=== PATIENT | female | born 1985 ===

== ENCOUNTER 2017-08-13 16:17 | Emergency (ER) | payer MEDICAID ==
[2017-08-13 16:24] VITALS: O2SAT 98
[2017-08-13] MEDS ORDERED: Sodium Chloride 0.9% 1,000 ML IV ONE (17:07)
[2017-08-13] MEDS ORDERED: Sodium Chloride 0.9% 1,000 ML ONE (17:27)
[2017-08-13 18:23] VITALS: BP 121/74; PULSE 18; RESP 19; TEMP 98
--- NOTE | 2017-08-13 20:20 | C.PDOC ---
History Of Present Illness 31yo female, presents to ED with complaints of subjective fever and sore throat for the past couple days. She also reports an episode of vomiting but states she has been able to tolerate PO fluid intake. She denies any dysuria, hematuria , abdominal pain, and denies any known sick contacts. Patient offers no other medical complaints. Time Seen by Provider: 08/13/17 17:00 Chief Complaint (Nursing): GI Problem History Per: Patient History/Exam Limitations: no limitations Onset/Duration Of Symptoms: Days Current Symptoms Are (Timing): Still Present Additional History Per: Patient Past Medical History Reviewed: Historical Data, Nursing Documentation, Vital Signs Vital Signs: Last Vital Signs Temp 98 F 08/13/17 18:22 Pulse 18 L 08/13/17 18:22 Resp 19 08/13/17 18:22 BP 121/74 08/13/17 18:22 Pulse Ox 98 08/13/17 20:29 - Medical History PMH: HIV Family History: States: No Known Family Hx - Social History Hx Tobacco Use: No Hx Alcohol Use: No Hx Substance Use: No - Immunization History Hx Tetanus Toxoid Vaccination: No Hx Influenza Vaccination: No Hx Pneumococcal Vaccination: No Review Of Systems Except As Marked, All Systems Reviewed And Found Negative. Constitutional: Positive for: Fever (subjhective) ENT: Positive for: Throat Pain Respiratory: Negative for: Cough, Shortness of Breath Gastrointestinal: Positive for: Vomiting Physical Exam - Physical Exam Appears: Non-toxic, No Acute Distress Skin: Normal Color, Warm, Dry Head: Normacephalic Eye(s): bilateral: Normal Inspection Oral Mucosa: Moist Throat: Exudate (left) Lymphatic: Adenopathy (anterior cervical lymphadenopathy) Chest: Symmetrical Cardiovascular: Rhythm Regular Respiratory: Normal Breath Sounds Gastrointestinal/Abdominal: Normal Exam, Soft, No Tenderness Neurological/Psych: Oriented x3 ED Course And Treatment O2 Sat by Pulse Oximetry: 98 (RA) Pulse Ox Interpretation: Normal Medical Decision Making Medical Decision Making: Plan: -- IV FLuids -- Toradol 30mg -- Zofran 4mg -- Tylenol 975 mg PO Progress: Patient reports marked improvement in symptoms and is stable for discharge home. Instructed to follow up with PMD in 2-3 days. Disposition - Disposition Referrals: Hernan Herrera, [Non-Staff] - Disposition: HOME/ ROUTINE Disposition Time: 18:00 Condition: IMPROVED Additional Instructions: Thank you for letting us take care of you today. The emergency medical care you received today was directed at your acute symptoms. If you were prescribed any medication, please fill it and take as directed. It may take several days for your symptoms to resolve. Return to the Emergency Department if your symptoms worsen, do not improve, or if you have any other problems. Please contact your doctor or call one of the physicians/clinics you have been referred to that are listed on the Patient Visit Information form that is included in your discharge packet. Bring any paperwork you were given at discharge with you along with any medications you are taking to your follow up visit. Our treatment cannot replace ongoing medical care by a primary care provider (PCP) outside of the emergency department. Thank you for allowing the [facility] team to be part of your care today. Follow up with your doctor in 1-2 days for re-evaluation and further management. Prescriptions: Amoxicillin [Amoxil 500 mg Cap] 500 mg PO Q8 #21 cap Ibuprofen [Motrin] 600 mg PO Q6 PRN #20 tab PRN Reason: Pain, Moderate (4-7) Instructions: Sore Throat, Adult (DC) Forms: [email or web address] (Kyrgyz), Work Excuse - Clinical Impression Clinical Impression: Acute bacterial tonsillitis - Scribe Statement The provider has reviewed the documentation as recorded by the Fabricioibe (Radhika Teresa) Provider Attestation: All medical record entries made by the Fabricioibe were at my direction and personally dictated by me. I have reviewed the chart and agree that the record accurately reflects my personal performance of the history, physical exam, medical decision making, and the department course for this patient. I have also personally directed, reviewed, and agree with the discharge instructions and disposition.
== END 2017-08-13 18:23 | disposition home or self-care (01) ==
LOC: C.ER 16:17
DX: J03.90 Acute tonsillitis, unspecified (principal)
CPT/HCPCS: 96374; 99284; J1885; J7030

== ENCOUNTER 2018-06-20 16:34 | Emergency (ER) | payer MEDICAID ==
[2018-06-20 16:40] VITALS: O2SAT 98
[2018-06-20] MEDS ORDERED: Sodium Chloride 0.9% 1,000 ML IV STA (17:30)
[2018-06-20] MEDS ORDERED: Sodium Chloride 0.9% 1,000 ML ONE (18:22)
[2018-06-20 18:25] LABS: BASO % 0.2 % (0.0-2.0); EOS % 0.4 % (0.0-4.0); HEMOGLOBIN 11.4 g/dL (11.0-16.0); LYMPH # 0.9 K/uL (1.0-4.3); LYMPH % 8.1 % (20.0-40.0); MEAN CORPUSCULAR HGB CONC 32.2 g/dL (33.0-37.0); MONO # 1.1 K/uL (0.0-0.8); MONO % 9.5 % (0.0-10.0); NEUT % 81.8 % (50.0-75.0); PLATELET COUNT 283 K/uL (130-400); RBC 4.38 Mil/uL (3.80-5.20); RED CELL DISTRIBUTION WIDTH 13.3 % (11.5-14.5)
[2018-06-20 18:29] LABS: MEAN CELL VOLUME 80.6 fL (81.0-99.0)
[2018-06-20 18:39] LABS: ALB/GLOB RATIO 1.1 (1.0-2.1); ALBUMIN 3.8 g/dL (3.5-5.0); ALT/SGPT 20 U/L (9-52); AST/SGOT 26 U/L (14-36); BLOOD UREA NITROGEN 4 mg/dL (7-17); CALCIUM 8.8 mg/dl (8.6-10.4); GFR NON-AFRICAN AMERICAN > 60
[2018-06-20 18:44] LABS: SQUAMOUS EPITHIAL 1 /hpf (0-5); URINE BACTERIA FEW (<OCC); URINE BILIRUBIN NEGATIVE (NEGATIVE); URINE BLOOD 2+ (NEGATIVE); URINE CLARITY Hazy (Clear); URINE COLOR Yellow (YELLOW); URINE GLUCOSE (UA) NORMAL (Normal); URINE LEUKOCYTE ESTERASE 1+ Leu/uL (Negative); URINE PROTEIN NEGATIVE (NEGATIVE); URINE UROBILINOGEN NORMAL mg/dL (0.2-1.0)
[2018-06-20 18:58] LABS: BANDS 4 % (0-2); EOSINOPHIL 1 % (0-4); LYMPHOCYTE 4 % (20-40); MONOCYTE 7 % (0-10); NEUTROPHIL 84 % (50-75); PLATELET ESTIMATE NORMAL (NORMAL); TOTAL CELLS COUNTED 100
--- NOTE | 2018-06-20 18:58 | C.PDOC ---
History Of Present Illness Patient is a 32 year old female, 14 weeks , who presents to the ED c/o body aches, chills, diarrhea, and lower abdominal discomfort for the past 2 to 3 days. Patient denies any fever, nausea, vomiting, CP, SOB, or vaginal bleeding. <Noni Forde - Last Filed: 06/20/18 19:08> History Per: Patient History/Exam Limitations: no limitations Onset/Duration Of Symptoms: Days (3) Current Symptoms Are (Timing): Still Present Associated Symptoms: Chills, Diarrhea. denies: Fever, Nausea, Vomiting, Chest Pain, Constipation Recent travel outside of the [place]: No Additional History Per: Patient <Noni Forde - Last Filed: 06/20/18 19:08> <Ga Seo - Last Filed: 06/20/18 20:31> Time Seen by Provider: 06/20/18 16:45 Chief Complaint (Nursing): Abdominal Pain Past Medical History Reviewed: Historical Data, Nursing Documentation, Vital Signs Vital Signs: Last Vital Signs Temp 98.9 F 06/20/18 16:36 Pulse 109 H 06/20/18 16:36 Resp 18 06/20/18 16:36 BP 126/73 06/20/18 16:36 Pulse Ox 98 06/20/18 16:36 - Medical History PMH: HIV Surgical History: No Surg Hx Family History: States: No Known Family Hx - Social History Hx Tobacco Use: No Hx Alcohol Use: No Hx Substance Use: No - Immunization History Hx Tetanus Toxoid Vaccination: No Hx Influenza Vaccination: No Hx Pneumococcal Vaccination: No <Noni Forde - Last Filed: 06/20/18 19:08> Vital Signs: Last Vital Signs Temp 98.2 F 06/20/18 20:04 Pulse 101 H 06/20/18 20:04 Resp 20 06/20/18 20:04 BP 102/65 06/20/18 20:04 Pulse Ox 98 06/20/18 20:04 <Ga Seo - Last Filed: 06/20/18 20:31> Review Of Systems Except As Marked, All Systems Reviewed And Found Negative. Constitutional: Positive for: Chills, Other (body aches). Negative for: Fever Cardiovascular: Negative for: Chest Pain Respiratory: Negative for: Shortness of Breath Gastrointestinal: Positive for: Abdominal Pain (lower abdominal discomfort ), Diarrhea. Negative for: Nausea, Vomiting Genitourinary: Negative for: Vaginal Bleeding <Noni Forde - Last Filed: 06/20/18 19:08> Physical Exam - Physical Exam Appears: Non-toxic, No Acute Distress Skin: Normal Color, Warm, Dry Head: Atraumatic, Normacephalic Eye(s): bilateral: Normal Inspection Oral Mucosa: Moist Neck: Normal ROM, Supple Chest: Symmetrical, No Deformity Cardiovascular: Rhythm Regular, No Murmur Respiratory: Normal Breath Sounds, No Rales, No Rhonchi, No Wheezing Gastrointestinal/Abdominal: Soft, Tenderness (mild tenderness in lower abdomen) Neurological/Psych: Oriented x3, Normal Speech, Normal Cognition <Noni Forde - Last Filed: 06/20/18 19:08> ED Course And Treatment - Laboratory Results Result Diagrams: 06/20/18 18:20 06/20/18 18:20 Lab Results: Total Bilirubin 0.3 mg/dL (0.2-1.3) 06/20/18 18:20 AST 26 U/L (14-36) 06/20/18 18:20 ALT 20 U/L (9-52) 06/20/18 18:20 Alkaline Phosphatase 56 U/L (38-126) 06/20/18 18:20 Total Protein 7.1 g/dL (6.3-8.3) 06/20/18 18:20 Albumin 3.8 g/dL (3.5-5.0) 06/20/18 18:20 Globulin 3.4 gm/dL (2.2-3.9) 06/20/18 18:20 Albumin/Globulin Ratio 1.1 (1.0-2.1) 06/20/18 18:20 Urine Color Yellow (YELLOW) 06/20/18 18:27 Urine Clarity Hazy (Clear) 06/20/18 18: Urine pH 5.0 (5.0-8.0) 06/20/18 18:27 Ur Specific Daggett 1.017 (1.003-1.030) 06/20/18 18:27 Urine Protein Negative mg/dL (NEGATIVE) 06/20/18 18: Urine Glucose (UA) Normal mg/dL (Normal) 06/20/18 18:27 Urine Ketones 2+ mg/dL (NEGATIVE) H 06/20/18 18:27 Urine Blood 2+ (NEGATIVE) H 06/20/18 18:27 Urine Nitrate Negative (NEGATIVE) 06/20/18 18:27 Urine Bilirubin Negative (NEGATIVE) 06/20/18 18:27 Urine Urobilinogen Normal mg/dL (0.2-1.0) 06/20/18 18:27 Ur Leukocyte Esterase 1+ Karina/uL (Negative) H 06/20/18 18:27 Urine WBC (Auto) 46 /hpf (0-5) H 06/20/18 18:27 Urine RBC (Auto) 16 /hpf (0-3) H 06/20/18 18:27 Ur Squamous Epith Cells 1 /hpf (0-5) 06/20/18 18:27 Urine Bacteria Few (<OCC) H 06/20/18 18:27 O2 Sat by Pulse Oximetry: 98 (on RA) Pulse Ox Interpretation: Normal Progress Note: Plan: Bloodwork. IV Fluids. Urine Culture. Urinalysis. Serology Influenza. US Pelvis <Noni Forde - Last Filed: 06/20/18 19:08> - Laboratory Results Result Diagrams: 06/20/18 18:20 06/20/18 18:20 Lab Results: Total Bilirubin 0.3 mg/dL (0.2-1.3) 06/20/18 18:20 AST 26 U/L (14-36) 06/20/18 18:20 ALT 20 U/L (9-52) 06/20/18 18:20 Alkaline Phosphatase 56 U/L (38-126) 06/20/18 18:20 Total Protein 7.1 g/dL (6.3-8.3) 06/20/18 18:20 Albumin 3.8 g/dL (3.5-5.0) 06/20/18 18:20 Globulin 3.4 gm/dL (2.2-3.9) 06/20/18 18:20 Albumin/Globulin Ratio 1.1 (1.0-2.1) 06/20/18 18:20 Urine Color Yellow (YELLOW) 06/20/18 18:27 Urine Clarity Hazy (Clear) 06/20/18 18:27 Urine pH 5.0 (5.0-8.0) 06/20/18 18:27 Ur Specific Daggett 1.017 (1.003-1.030) 06/20/18 18:27 Urine Protein Negative mg/dL (NEGATIVE) 06/20/18 18:27 Urine Glucose (UA) Normal mg/dL (Normal) 06/20/18 18:27 Urine Ketones 2+ mg/dL (NEGATIVE) H 06/20/18 18:27 Urine Blood 2+ (NEGATIVE) H 06/20/18 18:27 Urine Nitrate Negative (NEGATIVE) 06/20/18 18:27 Urine Bilirubin Negative (NEGATIVE) 06/20/18 18:27 Urine Urobilinogen Normal mg/dL (0.2-1.0) 06/20/18 18:27 Ur Leukocyte Esterase 1+ Karina/uL (Negative) H 06/20/18 18:27 Urine WBC (Auto) 46 /hpf (0-5) H 06/20/18 18:27 Urine RBC (Auto) 16 /hpf (0-3) H 06/20/18 18:27 Ur Squamous Epith Cells 1 /hpf (0-5) 06/20/18 18:27 Urine Bacteria Few (<OCC) H 06/20/18 18:27 Beta HCG, Quant 96244.00 mIU/ML 06/20/18 18:20 <Ga Seo - Last Filed: 06/20/18 20:31> Disposition - Disposition Disposition Time: 19:09 <Noni Forde - Last Filed: 06/20/18 19:08> <Ga Seo - Last Filed: 06/20/18 20:31> - Disposition Condition: STABLE Forms: [employer] (Marshallese) - Clinical Impression Clinical Impression: Diarrhea, Muscle ache, - PA / MECHANIC / Resident Statement MD/DO has examined the patient and agrees with the treatment plan. - Scribe Statement The provider has reviewed the documentation as recorded by the Jaleesa Mulligan All medical record entries made by the Fabricioibiggy were at my direction and personally dictated by me. I have reviewed the chart and agree that the record accurately reflects my personal performance of the history, physical exam, me dical decision making, and the department course for this patient. I have also personally directed, reviewed, and agree with the discharge instructions and disposition. <Noni Forde - Last Filed: 06/20/18 19:08> Physician Patient Turnover Patient Signed Over To: Ga Seo Handoff Comments: pending pelvic US, re-evaluation, dispo <Noni Forde - Last Filed: 06/20/18 19:08> Disposition <Noni Forde - Last Filed: 06/20/18 19:08> Comment: UA shows UTI. US shows "Single living intrauterine . No acute abnormality." Instructed to f/u with OBGYN, return to ED for worsening pain, fever, vomiting, dyspnea, bleeding, or any other problem. Counseled Patient/Family Regarding: Studies Performed, Diagnosis, Need For Followup, Rx Given Disposition Time: 19:09 <Ga Seo - Last Filed: 06/20/18 20:31> Clinical Impression: Diarrhea, Muscle ache, , Urinary tract infection Disposition: HOME/ ROUTINE Condition: STABLE Prescriptions: Nitrofurantoin Macrocrystals [Macrobid] 100 mg PO BID #20 cap Instructions: Urinary Tract Infections in Adults Referrals: [facility] [Outside] Stand Alone Forms: [facility] (Marshallese)
[2018-06-20 18:59] LABS: LARGE PLATELETS PRESENT; MICROCYTOSIS SLIGHT
[2018-06-20 20:05] VITALS: BP 102/65; PULSE 101; RESP 20; TEMP 98.2
--- NOTE | 2018-06-21 09:08 | US ---
Date of service: 06/20/2018 PROCEDURE: OB Pelvic Ultrasound HISTORY: pelvic pain, diarrhea, muscle aches LMP: 03/08/2018 COMPARISON: None available. FINDINGS: UTERUS: Gestational sac: Single live intrauterine fetus in transverse presentation. BPD: 2.73 cm corresponding to 14 weeks and 6 days of gestational age. HC: 10.85 cm corresponding to 15 weeks and 1 day of gestational age. AC: 8.83 cm corresponding to 15 weeks and 0 day of gestational age. FL: 1.52 cm corresponding to 14 weeks and 3 days of gestational age. Heart rate: 168 bpm. age (Ultrasound estimated): 14 weeks and 6 days Nereida-gestational hemorrhage: None. Date of delivery (Ultrasound estimated) : 12/13/2018 Placenta is posterior. CERVIX: Measures 3.9 cm. Long and closed. No cervical abnormality seen. RIGHT OVARY: Measures 3.6 x 2.5 x 2.8 cm. No mass lesion. Normal flow. LEFT OVARY: Not visualized. FREE FLUID: None. OTHER FINDINGS: There is a 4.1 x 2.7 x 3.9 cm anechoic mass with layering internal echoes and thick septations in the anterior vaginal wall. No significant flow on color Doppler imaging. IMPRESSION: 1. Single live intrauterine fetus in transverse presentation with mean gestational age of 14 weeks and 6 days. The estimated date of delivery by ultrasound is 12/13/2018. The ultrasound dates correspond with the clinical dates. Please note this is the limited OB ultrasound performed on an emergent basis. Dedicated anatomic survey is recommended. 2. 4.1 x 2.7 x 3.9 cm cystic mass with internal hemorrhage/debris in the anterior vaginal wall could represent a complicated/hemorrhagic Bartholin cyst. Follow-up is advised. A preliminary report was provided by [employer].
== END 2018-06-20 20:37 | disposition home or self-care (01) ==
LOC: C.ER 16:34
DX: O26.892 Other specified pregnancy related conditions, second trimester (principal); R19.7 Diarrhea, unspecified; M79.10 Myalgia, unspecified site; Z3A.14 14 weeks gestation of pregnancy
CPT/HCPCS: 76815; 80053; 81001; 84702; 85025; 86850; 86900; 87804; 96360; 99284; J7030